=== PATIENT | female | born 1985 | race Caucasian/White ===

== ENCOUNTER 2016-05-08 12:05 | Emergency (ER) | payer BC ==
[2016-05-08 12:22] VITALS: BP 96/59
[2016-05-08] MEDS ORDERED: ONDANSETRON HCL/PF 2 MG/ML VIAL IV ONE ×2 (12:29→14:34)
[2016-05-08] MEDS ORDERED: FAMOTIDINE 10 MG/ML VIAL IV ONE ×2 (12:31→12:36)
[2016-05-08] MEDS ORDERED: ONDANSETRON HCL/PF 2 MG/ML VIAL ONE ×2 (12:36→14:35)
[2016-05-08] MEDS ORDERED: DIATRIZOATE MEGLU/DIATRIZO SOD 30 ML BTL ONE (12:36)
[2016-05-08 12:53] LABS: Hematocrit 40.4 % (37.0-47.0); Hemoglobin 13.4 gm/dL (12.5-16.0); Mean Cell Volume 90.4 fl (78-100); Mean Corpuscular Hgb Conc 33.2 g/dl (32-36); Mean Platelet Volume 10.8 fl (6.0-9.5); Neutrophil # 3.6 K/mm3 (1.3-6.0); Platelet Count 209 K/mm3 (150-450); Red Blood Count 4.47 M/mm3 (4.2-5.4); Red Cell Distribution Width 12.5 % (11.5-14.0); White Blood Count 7.2 K/mm3 (4.0-10.5)
[2016-05-08 13:08] LABS: Anion Gap 15.8 mmol/L (6.8-13.8); BUN/Creatinine Ratio 9.9 (9.0-21.6); Bilirubin, Total 0.7 mg/dL (0.0-1.1); Ca. Corrected For Albumin 8.8 mg/dL (8.4-10.2); Calcium * 9.1 mg/dL (7.9-10.9); Carbon Dioxide 25.2 mmol/L (24-32.6); Total Protein 7.8 gm/dL (6.2-8.2)
--- NOTE | 2016-05-08 13:09 | ERNOTE ---
Abdominal HPI - Narrative Date of Service: 05/08/16 - General Chief Complaint: Abdominal Pain Time Seen by Provider: 05/08/16 12:27 Source: patient Exam Limitations: no limitations - Immun/Allergies/Home Medications Immunizatons: IMMUNIZATION HX Immunizations Up to Date Yes History of Influenza Vaccine No Hx Pneumococcal Vaccination No Allergies/Adverse Reactions: Allergies latex Allergy (Verified 05/08/16 12:21) morphine Allergy (Verified 05/08/16 12:21) tetracycline Allergy (Verified 05/08/16 12:21) NSAIDS (Non-Steroidal Anti-Inflamma Adverse Reaction (Verified 05/08/16 12:22) Other D/t ulcer Home Medications: HOME MEDICATIONS ALPRAZolam [Xanax] 1 mg PO TID PRN 11/22/14 [Last Taken Unknown] Carafate DAILY 01/04/16 [Last Taken Unknown] Omeprazole 1 tab PO DAILY 01/04/16 [Last Taken Unknown] Tramadol HCl/Acetaminophen [Tramadol-Acetaminophn 37.5-325] 1 each PO TID #30 tablet 05/08/16 [Last Taken Unknown] oxyCODONE HCL [Oxycodone] 5 mg PO Q6H PRN 05/08/16 [Last Taken Unknown] - History of Present Illness Narrative: Patient comes due to RLQ and Pelvic pain. Patient denied any vaginal discharge, but has been with pain on urination. Timing: constant Quality: moderate Activities at Onset: none Modifying Factors - (Improves): Present: vomiting Modifying Factors - (Worsens): Present: movement, urinating Associated Symptoms: Absent: headache, chest pain, neck pain, diaphoresis, diarrhea-gross blood, diarrhea-mucous, fatigue, fever/chills, heartburn, nausea , vomiting, loss of appetite, shortness of breath, swelling/mass in abdomen, syncope, weakness Prior Abdominal Problems: Absent: recent trauma, similar symptoms Prior Treatment: Present: recently seen - Patient was seen at [facility] Review of Systems - Review of Systems Constitutional: Absent: fever, chills, weakness EYE: Present: no symptoms reported ENT: Present: no symptoms reported Respiratory: Absent: shortness of breath, cough, orthopnea, wheezing Cardiology: Absent: chest pain, palpitations, syncope, edema, claudication Gastrointestinal/Abdominal: Present: nausea, abdominal pain - Patient with RLQ Pain. Absent: vomiting, diarrhea, constipation, eating less, drinking less Genitourinary: Present: frequency, pain, dysuria Musculoskeletal: Present: no symptoms reported Skin: Present: no symptoms reported Neurological: Present: no symptoms reported Endocrine: Present: no symptoms reported Hematologic/Lymphatic: Present: no symptoms reported Psych: Present: no symptoms reported - Patient's Past Medical History Patient History - Medical: Anxiety, Other Patient History - Cancer: No Hx of Cancer Patient History - Surgical Procedures: , EGD, Other - Family History Father Family History - Medical: No pertinent hx Grandfather-Paternal Family History - Medical: Family History - Cardiac/Respiratory: Myocardial Infarction - Social History Living Situations: home Smoking Status: Current every day smoker Have you smoked in the past 12 months: Yes Alcohol Use: none Drug Use: benzodiazepine, marijuana Physical Exam - Physical Exam General Appearance: Present: wd/wn, alert, no apparent distress, anxious Eye Exam: Normal inspection: bilateral, PERRL: bilateral, EOMI: bilateral Ears, Nose, Throat: Present: normal ENT inspection, hearing grossly normal Neck: Present: normal inspection, nontender Respiratory: Present: no respiratory distress, normal breath sounds, no accessory muscle use, chest nontender, lungs clear Cardiovascular/Chest: Present: regular rate, rhythm, no murmur, normal peripheral pulses Peripheral Pulses: N=norm/S=strong/W=weak/B=bound/A=absent: Radial (R): Normal, Radial (L): Normal, Dorsalis-pedis (R): Normal, Dorsalis-pedis (L): Normal Gastrointestinal/Abdominal: Present: nondistended, tenderness, guarding - On the lower abdominal area worse, McBurney sign. Absent: rebound, Obturator sign , Flower sign, Psoas sign, mass Back Exam: Present: normal inspection, normal range of motion, no CVA tenderness , no vertebral tenderness Extremity Exam: Present: normal inspection, non-tender, no edema, normal range of motion Neurological Exam: Present: alert, oriented, normal mood/affect, no motor/ sensory deficits Skin Exam: Present: normal color, warm/dry Lymphatic Exam: Present: no adenopathy ED Progress - Date and Time Seen: Date and Time: 05/08/16 16:36 Patient at the moment with a non surgical abdomen. Patient with no appendicitis , no torsion, no inflammatory changes on abdomen, and no UTI. Patient at this point is with a non emergent abdominal pain and has been recommended to follow up with PCP and [facility] [employer] [facility]. Patient will given pain medication and will be discharge home. - Results and Orders Patient's Lab Results:: I have reviewed the patient's lab results. Results and Orders: CBC has no leukocytosis Normal Creatinine and normal K UA: Normal - Vital Signs Patient's Vital Signs:: I have reviewed the patient's vital signs. Vital Signs: Vital Signs 05/08/16 12:19 Temperature 36.5 C Pulse Rate 81 Respiratory 14 Rate Blood Pressure 96/59 O2 Sat by Pulse 96 Oximetry - CT/Ultrasound CT/Ultrasound Narrative: US: IUD, No free fluids, no pathology reported by Radiologist CT: Radiology Report read. No gross pathology found. No appendicitis on reported noticed. - Progress/Reassessment Chief Complaint: Abdominal Pain Progress:: Improved - Transfer of Care Expected Disposition: Discharge Departure - Departure Clinical Impression: Abdominal pain Qualifiers: Abdominal location: right lower quadrant Qualified Code(s): R10.31 - Right lower quadrant pain Disposition: Home self-care Condition: Stable Instructions: Abdominal Pain, Adult, [id number], Pelvic Pain, Female Referrals: Samra Leavitt, [employer] [facility] [Primary Care Provider] - Prescriptions: Tramadol HCl/Acetaminophen [Tramadol-Acetaminophn 37.5-325] 1 each PO TID #30 tablet
[2016-05-08 13:42] LABS: Urine Bilirubin Negative (NEGATIVE); Urine Blood 25 /ul (NEGATIVE); Urine Ketone 5 mg/dL (NEGATIVE); Urine Nitrite Negative (NEGATIVE); Urine Protein Negative (NEGATIVE); Urine Specific Gravity 1.025 SP.GR. (1.005-1.010); Urine Urobilinogen Normal (NORMAL)
[2016-05-08 13:51] LABS: Urine Appearance Clear; Urine Bacteria TRACE; Urine Color Yellow; Urine WBC 0-5 /hpf (0-5)
[2016-05-08] MEDS ORDERED: HYDROmorphone HCL 1 MG/ML DISP.SYRIN ONE (15:17)
[2016-05-08] MEDS ORDERED: HYDROmorphone HCL 1 MG/ML DISP.SYRIN IV ONE (15:18)
== END 2016-05-08 16:50 | disposition home or self-care (01) ==
LOC: ER 12:05
DX: R10.31 Right lower quadrant pain (principal)